=== PATIENT | female | born 1990 | race African-American/Black ===

== ENCOUNTER 2018-03-27 00:55 | Emergency (ER) | payer OTHER ==
[~2018-03-27] VITALS: Ht 162.6 cm; Wt 113.4 kg
[~2018-03-27 00:55] MED LIST: BACTRIM DS TAB1 EACH PO; CLARITIN10 MG PO; DOXYCYCLINE 10100 MG PO; FLAGYL500 MG PO; HYDROCORTISONE30 G9 RE; NOHOMEMEDICATIONS; NORCO 5-325 TA1 EACH PO; PREDNISONE 20 M20 MG PO; ULTRAM 50MG TAB50 MG PO
[2018-03-27] MEDS ORDERED: CYCLOPENTOLA1 %/2 M1 OPHTHALMIC (01:53)
[2018-03-27 02:20] VITALS: BP 163/98
== END 2018-03-27 02:21 | disposition home or self-care (01) ==
LOC: ER 00:55
DX: H20.9 Unspecified iridocyclitis (principal); F17.210 Nicotine dependence, cigarettes, uncomplicated

== ENCOUNTER 2019-10-31 09:49 | Emergency (ER) | payer OTHER ==
[~2019-10-31] VITALS: Ht 160 cm; Wt 104.3 kg
[~2019-10-31 09:49] MED LIST changes: +CYCLOPENTOLA1 %/2 M1 OPHTHALMIC
[2019-10-31 10:50] LABS: URINE BILIRUBIN NEGATIVE (Negative); URINE BLOOD NEGATIVE (Negative); URINE CLARITY CLEAR; URINE COLOR YELLOW; URINE GLUCOSE-RANDOM* NEGATIVE (Negative); URINE KETONES NEGATIVE (Negative); URINE LEUKOCYTES-REFLEX NEGATIVE (Negative); URINE NITRITE-REFLEX NEGATIVE (Negative); URINE PROTEIN (DIPSTICK) NEGATIVE (Negative); URINE SPECIFIC GRAVITY 1.015 (1.005-1.035); URINE UROBILINOGEN 0.2 E.U./dl (0.2-1.0)
[2019-10-31 10:55] LABS: ABSOLUTE NEUTROPHILS 5.7 thou/uL (1.4-8.2); BASOPHILS 0.6 % (0.0-2.0); EOSINOPHILS 1.8 % (0.0-3.0); HEMATOCRIT 41.1 % (37.0-47.0); HEMOGLOBIN 13.3 gm/dL (12.0-15.0); MCHC 32.3 g/dL (28.0-37.0); MCV 83.5 fL (80.0-100.0); MONOCYTES 4.9 % (1.0-8.0); PLATELET COUNT 307 thou/uL (150-400); POLYS 63.7 % (36.0-66.0); RBC 4.93 mil/uL (4.20-5.00); RDW 15.5 % (10.5-14.5); WBC 8.9 thou/uL (4.0-11.0)
[2019-10-31 11:08] LABS: CALCIUM 8.8 mg/dL (8.5-10.1); CREATININE 0.8 mg/dL (0.6-1.0); POTASSIUM 3.9 mmol/L (3.5-5.1)
[2019-10-31] MEDS ORDERED: BUTALB-APAP-CA1 EACH PO (12:49)
[2019-10-31 12:50] VITALS: BP 169/100
== END 2019-10-31 13:10 | disposition home or self-care (01) ==
LOC: ER 09:49
PROVIDERS: Emergency Medicine Emergency Medical Services
DX: R51 Headache (principal); H53.8 Other visual disturbances; M43.6 Torticollis; F17.210 Nicotine dependence, cigarettes, uncomplicated

== ENCOUNTER 2020-10-20 22:22 | Emergency (ER) | payer OTHER ==
[~2020-10-20] VITALS: Ht 160 cm; Wt 117.9 kg
[~2020-10-20 22:22] MED LIST changes: +BUTALB-APAP-CA1 EACH PO
[2020-10-20 22:54] LABS: URINE BILIRUBIN NEGATIVE (Negative); URINE BLOOD NEGATIVE (Negative); URINE CLARITY CLEAR; URINE COLOR YELLOW; URINE GLUCOSE-RANDOM* NEGATIVE (Negative); URINE KETONES NEGATIVE (Negative); URINE LEUKOCYTES-REFLEX NEGATIVE (Negative); URINE NITRITE-REFLEX NEGATIVE (Negative); URINE PROTEIN (DIPSTICK) NEGATIVE (Negative); URINE UROBILINOGEN 0.2 E.U./dl (0.2-1.0)
[2020-10-20 23:04] LABS: HEMATOCRIT 32.5 % (37.0-47.0); HEMOGLOBIN 10.6 gm/dL (12.0-15.0); MCH 27.1 pg (26.0-34.0); MCHC 32.7 g/dL (28.0-37.0); MCV 82.9 fL (80.0-100.0); RBC 3.93 mil/uL (4.20-5.00); RDW 15.7 % (10.5-14.5); WBC 9.3 thou/uL (4.0-11.0)
[2020-10-21 01:19] VITALS: BP 135/71
== END 2020-10-21 01:20 | disposition home or self-care (01) ==
LOC: ER 22:22
PROVIDERS: Emergency Medicine
DX: O26.891 Other specified pregnancy related conditions, first trimester (principal); R10.2 Pelvic and perineal pain; Z3A.01 Less than 8 weeks gestation of pregnancy; F17.210 Nicotine dependence, cigarettes, uncomplicated

== ENCOUNTER 2021-03-08 13:51 | Emergency (ER) | payer OTHER ==
[~2021-03-08] VITALS: Ht 160 cm; Wt 131.5 kg
[2021-03-08 13:51] VITALS: BP 141/70
[2021-03-08] MEDS ORDERED: CEPHALEXIN500 MG PO (14:07)
== END 2021-03-08 14:07 | disposition home or self-care (01) ==
LOC: ER 13:51
DX: L03.012 Cellulitis of left finger (principal); F17.210 Nicotine dependence, cigarettes, uncomplicated